=== PATIENT | male | born 1950 | race Caucasian/White ===

== ENCOUNTER → 2016-06-25 | Outpatient (CLI) | payer BC, OTHER ==
[2016-06-26 11:20] LABS: Hepatitis B Surface Ag Index 0.07
[2016-06-26 11:37] LABS: Hepatitis C Virus IgG Index 0.13
[2016-06-26 11:38] LABS: Hepatitis C Virus IgG Ab Negative (Negative)
[2016-06-27 06:36] LABS: HIV-1/HIV-2 Ab Screen NONREAC (NON REAC)
== END | disposition home or self-care (01) ==
LOC: LABMAIN 21:44
PROVIDERS: ATTEND Family Medicine
DX: Z77.21 Contact with and (suspected) exposure to potentially hazardous body fluids (principal)
CPT/HCPCS: 36415; 86803; 87340; 87389

== ENCOUNTER 2019-02-19 06:57 | Day surgery (SDC) | payer BC ==
[2019-02-17 09:06] VITALS: BMI 30.4
[~2019-02-19 06:57] MED LIST: LACTATED RINGERS 1,000 ML IV SCH
[2019-02-19 07:19] VITALS: TEMP 98.1
[2019-02-19] MEDS ORDERED: PROPOFOL 10 MG/ML 20 ML VIAL IV ONE (07:33)
[2019-02-19 07:56] VITALS: RESP 16
[2019-02-19 08:10] VITALS: BP 138/84; PULSE 87
--- NOTE | 2019-02-19 08:13 | P.PCN ---
Date of Procedure: 02/19/19 Procedure(s) Performed: BRIEF HISTORY: Patient is a 68-year-old pleasant white male scheduled for an elective colonoscopy as a part of screening for colon rectal neoplasia. PROCEDURE PERFORMED: Colonoscopy. PREOPERATIVE DIAGNOSIS: Screening for colon cancer. IV sedation per Anesthesia. PROCEDURE: After informed consent was obtained, the patient, was brought into the endoscopy unit. IV sedation was administered by Anesthesia under continuous monitoring. Digital rectal examination was normal. Initially the Olympus CF-160 flexible video colonoscope was then inserted in the rectum, gradually advanced into the cecum without any difficulty. Careful examination was performed as the scope was gradually being withdrawn. Ileocecal valve and the appendiceal orifice were visualized and appeared normal. Prep was excellent. Mucosa of the cecum, ascending colon, transverse colon, descending colon, sigmoid colon, and rectum appeared normal. Scattered sigmoidal diverticulosis seen. Retroflexion was performed in the rectum and no lesions were seen. The patient tolerated the procedure well. IMPRESSION: Normal-appearing colon from rectum to cecum with no evidence of colorectal neoplasia . Scattered sigmoid diverticulosis. RECOMMENDATIONS: Findings of this examination were discussed with the patient as well as his family. He was advised to have a repeat screening colonoscopy in 10 years.
== END 2019-02-19 08:23 | disposition home or self-care (01) ==
LOC: ORWHC2ENDO 06:57
PROVIDERS: ATTEND Internal Medicine Gastroenterology
DX: Z12.11 Encounter for screening for malignant neoplasm of colon (principal); K57.30 Diverticulosis of large intestine without perforation or abscess without bleeding; Z88.4 Allergy status to anesthetic agent; Z85.828 Personal history of other malignant neoplasm of skin; Z87.19 Personal history of other diseases of the digestive system; Z79.899 Other long term (current) drug therapy
CPT/HCPCS: J2704; G0121; 45378

== ENCOUNTER → 2020-03-16 | Outpatient (CLI) | payer MEDICARE, BC ==
[2020-03-16 21:25] LABS: Hepatitis B Surface AB- Quant 492.3 mIU/mL; Hepatitis B Surface Antibody Reactive (Non-Reactive)
== END | disposition home or self-care (01) ==
LOC: LAB 12:40
PROVIDERS: ATTEND Emergency Medicine
DX: Z01.84 Encounter for antibody response examination (principal)
CPT/HCPCS: 86706; 86769

== ENCOUNTER → 2020-03-19 | Outpatient (CLI) | payer MEDICARE, BC | END | disposition home or self-care (01) | LOC: LAB 13:59 | PROVIDERS: ATTEND Emergency Medicine | DX: Z20.828 Contact with and (suspected) exposure to other viral communicable diseases (principal) | CPT/HCPCS: 87635 ==

== ENCOUNTER → 2023-02-21 | Outpatient (CLI) | payer MEDICARE, BC | END | disposition home or self-care (01) | LOC: LABMAIN 10:04 | PROVIDERS: ATTEND Internal Medicine Interventional Cardiology | DX: Z53.9 Procedure and treatment not carried out, unspecified reason (principal) ==

== ENCOUNTER → 2023-09-25 | Outpatient (CLI) | payer MEDICARE, BC ==
[2023-09-25 11:00] LABS: HCT 41.2 % (39.0-53.0); HGB 13.5 gm/dL (13.0-17.5); MCH 29.6 pg (25.0-35.0); MCHC 32.7 g/dL (31.0-37.0); MCV 90.5 fL (80.0-100.0); Mean Platelet Volume 8.7; Platelet Count 189 k/uL (150-450); RBC 4.55 m/uL (4.30-5.90); RDW 13.3 % (11.5-15.5); WBC 6.3 k/uL (3.8-10.6)
[2023-09-25 16:23] LABS: ALT 32 U/L (4-49); AST 26 U/L (17-59); African American GFR (CKD) >90 (>60 ml/min/1.73 sqM); Anion Gap 4 mmol/L; Blood Urea Nitrogen 21 mg/dL (9-20); Carbon Dioxide 28 mmol/L (22-30); Chloride 106 mmol/L (98-107); Glucose 157 mg/dL (74-99); Non-African American GFR(CKD) 89 (>60 ml/min/1.73 sqM); Potassium 4.2 mmol/L (3.5-5.1); Sodium 138 mmol/L (137-145)
[2023-09-25 21:20] LABS: Microalbumin Creatinine Ratio <6 mg/g Cr (0-30)
== END | disposition home or self-care (01) ==
LOC: LAB 10:06
PROVIDERS: ATTEND Family Medicine
DX: E11.65 Type 2 diabetes mellitus with hyperglycemia (principal); I10 Essential (primary) hypertension; E78.2 Mixed hyperlipidemia
CPT/HCPCS: 80048; 82043; 82570; 83036; 84450; 84460; 85027

== ENCOUNTER → 2023-12-14 | Outpatient (CLI) | payer MEDICARE, BC ==
--- NOTE | 2023-12-16 13:33 | MR ---
EXAMINATION TYPE: MR lumbar spine wo con DATE OF EXAM: 12/14/2023 COMPARISON: Radiculopathy HISTORY: low back pain that radiates down both legs, mostly left. CONTRAST: 0 mL intravenous Gadavist. TECHNIQUE: Multiplanar, multisequence images of the lumbar spine were acquired. FINDINGS: L5-S1: A based disc bulge is present. This has mild anterior thecal sac flattening. Facet hypertrophy and ligamentum flavum laxity is present with mild left posterior lateral thecal sac compression. No spinal canal stenosis. Severe right foraminal stenosis is present. Moderate to severe left foramina l stenosis is present. L4-L5: Loss of disc height this level. Disc uncovering is present with mild anterior thecal sac compr ession. Facet hypertrophy and ligamentum flavum laxity is present contributing to spinal canal stenos is. Lateral canal stenosis is also present. Moderate to severe foraminal narrowing is present. L3-L4: No significant disc bulge or disc herniation. No spinal canal stenosis. Facet hypertrophy an d mild ligamentum flavum laxity is present. Neural foramen are patent L2-L3: Disc bulge is present with anterior thecal sac flattening. No AP spinal stenosis. Facet Hypert rophy is present L1-L2: No significant disc bulge or disc herniation. No spinal canal stenosis. No foraminal stenosi s. T12-L1: No significant disc bulge or disc herniation. No spinal canal stenosis. No foraminal stenos is. There is a grade 1 spondylolisthesis of L4 anteriorly on L5. Superior endplate changes L5 is present. IMPRESSION: 1. Grade 1 spondylolisthesis of L4 anterior on L5. Facet hypertrophy ligamentum flavum laxity and dis c bulging contributes to spinal canal stenosis at this level. 2. Severe bilateral foraminal narrowing L5-S1 moderate to severe foraminal narrowing is present L4-5. [facility], , 12/16/2023 1:31 PM
== END | disposition home or self-care (01) ==
LOC: RADMRIMAIN 19:45
PROVIDERS: ATTEND Family Medicine
DX: M54.16 Radiculopathy, lumbar region
CPT/HCPCS: 72148

== ENCOUNTER → 2024-01-11 | Outpatient (CLI) | payer MEDICARE, BC ==
[2024-01-11 14:51] LABS: Partial Thromboplastin Time 24.9 sec (22.0-30.0); Prothrombin Time 10.6 sec (10.0-12.5)
[2024-01-11 18:23] LABS: Basophils # (A) 0.07 X 10*3/uL (0.00-0.10); Eosinophils # (A) 0.35 X 10*3/uL (0.04-0.35); Eosinophils % (A) 5.1 %; HCT 41.7 % (39.6-50.0); Lymphocytes # (A) 1.58 X 10*3/uL (0.90-5.00); Lymphocytes % (A) 23.1 %; MCH 29.1 pg (27.0-32.0); MCHC 33.6 g/dL (32.0-37.0); MCV 86.7 FL (80.0-97.0); Mean Platelet Volume 11.2 FL (9.5-12.2); Monocytes # (A) 0.48 X 10*3/uL (0.20-1.00); NRBC Per 100 WBC 0 X 10*3/uL (0.00-0.01); Neutrophils # (A) 4.36 X 10*3/uL (1.80-7.70); Neutrophils % (A) 63.7 %; Platelet Count 227 X 10*3/uL (140-440); RBC 4.81 X 10*6/uL (4.40-5.60); RDW 13.1 % (11.5-14.5); WBC 6.85 X 10*3/uL (4.50-10.00)
[2024-01-11 18:32] LABS: ALT 38 U/L (10-49); AST 22 U/L (14-35); Albumin 4.5 g/dL (3.8-4.9); Albumin/Globulin Ratio 1.61 Ratio (1.60-3.17); Alkaline Phosphatase 73 U/L (41-126); Blood Urea Nitrogen 20.1 mg/dL (9.0-27.0); Calcium 9.1 mg/dL (8.7-10.3); Chloride 102 mmol/L (96-109); Globulin 2.8 g/dL (1.6-3.3); Glucose 143 mg/dL (70-110); Potassium 4.5 mmol/L (3.5-5.5); Sodium 140 mmol/L (135-145); Total Bilirubin 0.5 mg/dL (0.3-1.2); Total Protein 7.3 g/dL (6.2-8.2)
== END | disposition home or self-care (01) ==
LOC: LABMAIN 14:14
PROVIDERS: ATTEND Neurological Surgery
DX: Z01.812 Encounter for preprocedural laboratory examination (principal)
CPT/HCPCS: 80053; 83036; 85025; 85610; 85730; 86850; 86900; 86901

== ENCOUNTER → 2024-03-13 | Outpatient (CLI) | payer MEDICARE, BC ==
--- NOTE | 2024-03-13 11:51 | XR ---
Lumbar spine with flexion and extension. History: Back pain COMPARISON: None. TECHNIQUE: 5 views lumbar spine were obtained including lateral flexion and extension views. FINDINGS: There are postsurgical changes of interbody and posterior metallic fusion of L4 and L5. The lumbar vertebral segments are normal in height and alignment and there is no fracture or subluxat ion. The disc spaces are well preserved. There is no significant change in the lumbar vertebral body alignment with flexion or extension. The visualized sacrum and SI joints are normal. IMPRESSION: 1. Post surgical changes of interbody and posterior metallic fusion of L4 and L5. 2. No acute fracture or malalignment of the lumbar vertebral segments. 3. No evidence of instability with flexion or extension. [facility], Workstation: [id number] 03/13/2024 11:49 AM
== END | disposition home or self-care (01) ==
LOC: RADXRMAIN 10:59
PROVIDERS: ATTEND Neurological Surgery
DX: M48.061 Spinal stenosis, lumbar region without neurogenic claudication (principal); M43.16 Spondylolisthesis, lumbar region
CPT/HCPCS: 72114

== ENCOUNTER → 2024-04-01 | Outpatient (CLI) | payer BC, MEDICARE | END | disposition home or self-care (01) | LOC: LABMAIN 09:38 | PROVIDERS: ATTEND Emergency Medicine | DX: Z01.812 Encounter for preprocedural laboratory examination (principal) | CPT/HCPCS: 87070; 87205 ==

== ENCOUNTER → 2024-04-01 | Outpatient (CLI) | payer BC, MEDICARE ==
[2024-04-01 15:51] LABS: Basophils # (A) 0.07 X 10*3/uL (0.00-0.10); Eosinophils % (A) 4.2 %; HCT 42.2 % (39.6-50.0); HGB 13.6 g/dL (13.0-17.0); Lymphocytes # (A) 1.42 X 10*3/uL (0.90-5.00); Lymphocytes % (A) 19.8 %; MCH 28.3 pg (27.0-32.0); MCHC 32.2 g/dL (32.0-37.0); MCV 87.9 FL (80.0-97.0); Mean Platelet Volume 11.4 FL (9.5-12.2); Monocytes # (A) 0.66 X 10*3/uL (0.20-1.00); Monocytes % (A) 9.2 %; NRBC Per 100 WBC 0 X 10*3/uL (0.00-0.01); Neutrophils # (A) 4.71 X 10*3/uL (1.80-7.70); Neutrophils % (A) 65.5 %; Platelet Count 235 X 10*3/uL (140-440); RDW 13.5 % (11.5-14.5); WBC 7.18 X 10*3/uL (4.50-10.00)
[2024-04-01 16:17] LABS: ALT 28 U/L (10-49); AST 20 U/L (14-35); Albumin 4.5 g/dL (3.8-4.9); Albumin/Globulin Ratio 1.45 Ratio (1.60-3.17); Alkaline Phosphatase 90 U/L (41-126); BUN/Creat Ratio 22.33 Ratio (12.00-20.00); Blood Urea Nitrogen 20.1 mg/dL (9.0-27.0); Calcium 9.2 mg/dL (8.7-10.3); Carbon Dioxide 24.8 mmol/L (21.6-31.8); Chloride 105 mmol/L (96-109); Chol/HDL Ratio 3.34 Ratio; Globulin 3.1 g/dL (1.6-3.3); Glucose 143 mg/dL (70-110); LDL Cholesterol,Calculated 96.7 mg/dL (0.0-131.0); Magnesium 2.1 mg/dL (1.5-2.4); Potassium 4.3 mmol/L (3.5-5.5); Prostate Specific Antigen 3.73 ng/mL (0.000-6.500); Sodium 141 mmol/L (135-145); Total Bilirubin 0.5 mg/dL (0.3-1.2); Total Protein 7.6 g/dL (6.2-8.2)
== END | disposition home or self-care (01) ==
LOC: LABMAIN 10:21
PROVIDERS: ATTEND Emergency Medicine
DX: Z48.89 Encounter for other specified surgical aftercare (principal)
CPT/HCPCS: 80053; 80061; 82306; 83036; 83735; 84153; 85025

== ENCOUNTER → 2024-07-08 | Outpatient (CLI) | payer BC, MEDICARE ==
--- NOTE | 2024-07-08 13:46 | XR ---
EXAMINATION TYPE: XR lumbar spine 2 or 3V DATE OF EXAM: 07/08/2024 CLINICAL HISTORY: Post surgery L4-L5 evaluation, pain. TECHNIQUE: Three views of the lumbar spine are submitted. COMPARISON: Lumbar spine radiographs 03/13/2024, MRI lumbar spine 12/14/2023 FINDINGS: There are 5 lumbar type vertebral bodies identified. No acute fracture or dislocation. Alignment of t he lumbar spine. Postsurgical changes from posterior fusion L4-L5 with bilateral pedicular screws and rods and disc spacer. Hardware appears intact with appropriate alignment. Multilevel disc space narr owing with endplate sclerosis. Bilateral facet arthropathy at L5-S1. Vertebral body heights are withi n normal limits. The overlying soft tissue appears unremarkable. IMPRESSION: 1. No acute fracture or dislocation is seen in the lumbar spine. 2. Postsurgical changes from L4-L5. Hardware appears intact with appropriate alignment. 3. Mild multilevel degenerative disc disease and facet arthropathy. [facility], , 07/08/2024 1:44 PM
== END | disposition home or self-care (01) ==
LOC: RADXRMAIN 13:10
PROVIDERS: ATTEND Emergency Medicine
DX: Z48.89 Encounter for other specified surgical aftercare (principal); M51.360 Other intervertebral disc degeneration, lumbar region with discogenic back pain only; M47.816 Spondylosis without myelopathy or radiculopathy, lumbar region; Z98.890 Other specified postprocedural states
CPT/HCPCS: 72100

== ENCOUNTER → 2024-09-29 | Outpatient (CLI) | payer MEDICARE, BC ==
[2024-09-29 16:09] LABS: Anion Gap 12.10 mmol/L (4.00-12.00); BUN/Creat Ratio 22.89 Ratio (12.00-20.00); Blood Urea Nitrogen 20.6 mg/dL (9.0-27.0); Calcium 8.9 mg/dL (8.7-10.3); Carbon Dioxide 22.9 mmol/L (21.6-31.8); Chloride 104 mmol/L (96-109); Glucose 148 mg/dL (70-110); Potassium 4.9 mmol/L (3.5-5.5); Prostate Specific Antigen 3.86 ng/mL (0.000-6.500); Sodium 139 mmol/L (135-145)
== END | disposition home or self-care (01) ==
LOC: LABMAIN 11:03
PROVIDERS: ATTEND Family Medicine
DX: N40.0 Benign prostatic hyperplasia without lower urinary tract symptoms (principal); E11.65 Type 2 diabetes mellitus with hyperglycemia; E55.9 Vitamin D deficiency, unspecified
CPT/HCPCS: 80048; 82306; 83036; 84153